=== PATIENT | male | born 1975 | race Two or more races ===

== ENCOUNTER 2018-10-06 17:56 | Emergency (ER) | payer SELFPAY ==
[~2018-10-06] VITALS: Ht 175.3 cm; Wt 59.0 kg
[2018-10-06] MEDS ORDERED: NKM (17:57)
[2018-10-06] MEDS ORDERED: Norco 5mg/325mg tab ORAL ONE (18:15)
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
[2018-10-06 18:44] VITALS: BP 124/79
[2018-10-06] MEDS ORDERED: ROBAXIN-750750 MG PO (19:19)
[2018-10-06] MEDS ORDERED: IBUPROFEN600 MG ORAL (19:19)
[2018-10-06 19:36] VITALS: BP 121/76
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
== END 2018-10-06 20:00 | disposition home or self-care (01) ==
LOC: EDBD 17:56 → EMR 19:50
DX: S20.211A Contusion of right front wall of thorax, initial encounter (principal); R10.30 Lower abdominal pain, unspecified; M79.601 Pain in right arm; F17.200 Nicotine dependence, unspecified, uncomplicated; V43.62XA Car passenger injured in collision with other type car in traffic accident, initial encounter; Y92.488 Other paved roadways as the place of occurrence of the external cause
CPT/HCPCS: 71250; 74176; 99284